=== PATIENT | male | born 1990 | race Two or more races ===

== ENCOUNTER 2017-01-09 08:34 | Emergency (ER) | payer MEDICAID ==
[~2017-01-09] VITALS: Ht 180.3 cm; Wt 93.0 kg
[2017-01-09 09:04] LABS: BASOPHILS % 0.3 % (0.0-2.0); EOSINOPHILS % 2.7 % (0.0-5.0); HEMATOCRIT. 45.4 % (42.0-52.0); HEMOGLOBIN. 14.9 g/dL (14.0-18.0); LYMPHOCYTES % 31.1 % (20.0-50.0); MEAN CORPUSCULAR HEMOGLOBIN 26.6 pg (28.0-32.0); MEAN PLATELET VOLUME 8.9 fl (7.4-10.4); MONOCYTES % 7.5 % (2.0-8.0); NEUTROPHILS % 58.4 % (40.0-76.0); PLATELET 224 x1000/uL (130-400); RED BLOOD CELL COUNT 5.61 mill/uL (4.7-6.1); RED CELL DISTRIBUTION WIDTH 15.7 % (11.6-14.6)
[2017-01-09 09:11] LABS: PROTHROMBIN TIME 10.6 sec
[2017-01-09] MEDS ORDERED: MORPHINE SULFATE 4 MG/ML CPJ (NOT FOR IM USE) IV ONE ×2 (09:13→09:15)
[2017-01-09] MEDS ORDERED: TETANUS, DIPHTHERIA, PERTUSSIS VAC/PF 0.5ML (>7YR OLD) IM ONE (09:15)
[2017-01-09 09:18] LABS: CARBON DIOXIDE 28 mEq/L (21-32); CHLORIDE 106 mEq/L (98-107)
[2017-01-09] MEDS ORDERED: IOHEXOL-300 100 ML BOTTLE ONE (10:20)
[2017-01-09] MEDS ORDERED: SODIUM CHLORIDE 0.9% 10ML VIAL ONE (10:20)
[2017-01-09] MEDS ORDERED: SODIUM CHLORIDE 0.9% 1,000 ML IV ONE (13:51)
[2017-01-09 14:16] LABS: BASOPHILS % 0.2 % (0.0-2.0); EOSINOPHILS % 0.8 % (0.0-5.0); HEMATOCRIT. 32.6 % (42.0-52.0); HEMOGLOBIN. 10.7 g/dL (14.0-18.0); MEAN CORPUSCULAR HEMOGLOBIN 27.1 pg (28.0-32.0); MEAN CORPUSCULAR VOLUME 82.9 fL (80.0-94.0); MEAN PLATELET VOLUME 8.4 fl (7.4-10.4); MONOCYTES % 4.8 % (2.0-8.0); NEUTROPHILS % 82.2 % (40.0-76.0); PLATELET 146 x1000/uL (130-400); RED BLOOD CELL COUNT 3.94 mill/uL (4.7-6.1); RED CELL DISTRIBUTION WIDTH 15.3 % (11.6-14.6)
[2017-01-09 16:36] LABS: HEMATOCRIT. 42.2 % (42.0-52.0); HEMOGLOBIN. 13.8 g/dL (14.0-18.0); MEAN CORPUSCULAR HEMOGLOBIN 26.7 pg (28.0-32.0); MEAN CORPUSCULAR VOLUME 81.8 fL (80.0-94.0); MEAN PLATELET VOLUME 8.9 fl (7.4-10.4); PLATELET 193 x1000/uL (130-400); RED BLOOD CELL COUNT 5.16 mill/uL (4.7-6.1); RED CELL DISTRIBUTION WIDTH 15.7 % (11.6-14.6)
[2017-01-09 16:56] VITALS: BP 127/97
[2017-01-09 16:58] LABS: PLATELET ESTIMATE NORMAL
== END 2017-01-09 17:17 | disposition home or self-care (01) ==
LOC: ER 08:47
DX: S41.002A Unspecified open wound of left shoulder, initial encounter (principal); W34.00XA Accidental discharge from unspecified firearms or gun, initial encounter; Y93.89 Activity, other specified; Y99.8 Other external cause status; Y92.810 Car as the place of occurrence of the external cause
CPT/HCPCS: 36415; 71010; 71260; 73030; 74177; 80053; 85025; 85610; 86850; 86900; 86901; 96361; 96374; 99285; A4216; J2270; J7030; Q9967; A4565

== ENCOUNTER 2017-06-04 00:36 | Emergency (ER) | payer MEDICAID ==
[~2017-06-04] VITALS: Ht 182.9 cm; Wt 140.0 kg
[2017-06-04 02:46] LABS: BASOPHILS % 0.5 % (0.0-2.0); EOSINOPHILS % 4.3 % (0.0-5.0); HEMATOCRIT. 43.1 % (42.0-52.0); HEMOGLOBIN. 14.6 g/dL (14.0-18.0); MEAN CORPUSCULAR HEMOGLOBIN 27.5 pg (28.0-32.0); MEAN CORPUSCULAR VOLUME 81.4 fL (80.0-94.0); MONOCYTES % 7.8 % (2.0-8.0); NEUTROPHILS % 57.4 % (40.0-76.0); PLATELET 222 x1000/uL (130-400); RED CELL DISTRIBUTION WIDTH 15.7 % (11.6-14.6)
[2017-06-04 02:49] LABS: CARBON DIOXIDE 27 mEq/L (21-32); CHLORIDE 105 mEq/L (98-107)
[2017-06-04 03:21] VITALS: BP 128/71
== END 2017-06-04 03:22 | disposition home or self-care (01) ==
LOC: ER 00:36
DX: J20.9 Acute bronchitis, unspecified (principal); M94.0 Chondrocostal junction syndrome [Tietze]
CPT/HCPCS: 36415; 71010; 80053; 85025; 93005; 99285; Z7610

== ENCOUNTER 2018-05-07 05:06 | Emergency (ER) | payer MEDICAID ==
[~2018-05-07] VITALS: Ht 182.9 cm; Wt 144.0 kg
[2018-05-07] MEDS ORDERED: POVIDONE-IODINE 10% TOPICAL SOLN 240ML TOP ONE (06:30)
[2018-05-07] MEDS ORDERED: KETOROLAC 60MG/2ML VIAL IM ONE ×2 (06:30→06:45)
[2018-05-07] MEDS ORDERED: SODIUM CHLORIDE 0.9% IRRIG SOLUTION 1000ML IR ONE (06:30)
[2018-05-07] MEDS ORDERED: BACITRACIN ZINC OINT UDPKT TOP ONE (07:00)
[2018-05-07 07:40] VITALS: BP 139/75
== END 2018-05-07 08:04 | disposition home or self-care (01) ==
LOC: ER 05:06
DX: S91.301A Unspecified open wound, right foot, initial encounter (principal); F17.200 Nicotine dependence, unspecified, uncomplicated; X58.XXXA Exposure to other specified factors, initial encounter; Y93.89 Activity, other specified; Y92.89 Other specified places as the place of occurrence of the external cause; Y99.8 Other external cause status
CPT/HCPCS: 82962; 96372; 99283; A4246; J1885

== ENCOUNTER 2022-10-21 16:58 | Emergency (ER) | payer MEDICAID ==
[~2022-10-21] VITALS: Ht 182.9 cm; Wt 150.0 kg
[2022-10-21] MEDS ORDERED: KETOROLAC 15MG/ML VIAL IM ONE (20:30)
[2022-10-21 20:43] VITALS: BP 124/90
[2022-10-21] MEDS ORDERED: NAPR500T7 MT (20:48)
== END 2022-10-21 21:05 | disposition home or self-care (01) ==
LOC: ER 16:58
DX: S83.91XA Sprain of unspecified site of right knee, initial encounter (principal); V87.8XXA Person injured in other specified noncollision transport accidents involving motor vehicle (traffic), initial encounter; Y93.89 Activity, other specified; Y92.89 Other specified places as the place of occurrence of the external cause; Y99.8 Other external cause status
CPT/HCPCS: 73560; 99283; L1830; Z7610; J1885

== ENCOUNTER 2024-12-14 19:16 | Emergency (ER) | payer MEDICAID ==
[~2024-12-14] VITALS: Ht 182.9 cm; Wt 161.0 kg
[~2024-12-14 19:16] MED LIST: NAPR-1486 MT
[2024-12-14 19:20] VITALS: O2SAT 95
[2024-12-14 19:54] LABS: BASOPHILS % 0.3 % (0.0-2.0); HEMATOCRIT. 44.8 % (42.0-52.0); HEMOGLOBIN. 14.7 g/dL (14.0-18.0); MEAN CORPUSCULAR HEMOGLOBIN 26.9 pg (28.0-32.0); MEAN CORPUSCULAR HGB CONC 32.8 g/dL (31.0-37.0); MEAN PLATELET VOLUME 8.4 fl (7.4-10.4); MONOCYTES % 6.3 % (2.0-8.0); NEUTROPHILS % 76.4 % (40.0-76.0); PLATELET 272 x1000/uL (130-400); RED BLOOD CELL COUNT 5.46 mill/uL (4.7-6.1); RED CELL DISTRIBUTION WIDTH 16.1 % (11.6-14.6); WHITE BLOOD COUNT 10.4 x1000/uL (4.5-11.0)
[2024-12-14 20:00] LABS: CHLORIDE 103 mEq/L (98-107); POTASSIUM 4.1 mEq/L (3.5-5.1); SODIUM 137 mEq/L (136-145)
[2024-12-14 20:01] LABS: CALCIUM 9.5 mg/dL (8.7-10.4); CARBON DIOXIDE 23 mEq/L (21-32)
[2024-12-14 20:06] LABS: CREATININE 1.2 mg/dL (0.6-1.3); GLUCOSE 104 mg/dL (70-105); UREA NITROGEN BLOOD 15 mg/dL (9-23)
[2024-12-14 20:34] LABS: TROPONIN I HIGH SENSITIVITY < 4 ng/L (3.0-53)
[2024-12-14 22:00] VITALS: PULSE 64; RESP 16
[2024-12-14] MEDS: IPRATROPIUM/ALBUTEROL 0.5-3(2.5)MG/3ML NEB HHN NR (22:00)
[2024-12-14 23:06] VITALS: BP 143/88; PULSE 64; RESP 17; TEMP 36.7; O2SAT 95
== END 2024-12-14 23:12 | disposition home or self-care (01) ==
LOC: ER 19:16
DX: R06.02 Shortness of breath (principal); Z79.1 Long term (current) use of non-steroidal anti-inflammatories (NSAID); Z98.890 Other specified postprocedural states; F12.90 Cannabis use, unspecified, uncomplicated
CPT/HCPCS: 80048; 83880; 85025; 85379; 84484; 36415; 71045; 94640; 93005; 98960; 99285; Z7610 ×3; 94070